=== PATIENT | female | born 1945 | race Caucasian/White ===

== ENCOUNTER 2023-01-15 22:19 | Emergency (ER) | payer BC, SELFPAY ==
[2023-01-15 22:31] VITALS: BP 148/82; PULSE 74; RESP 18; TEMP 36.9; O2SAT 99; BMI 34.0
[2023-01-15 22:35] VITALS: BP 132/82; PULSE 79; O2SAT 90
[2023-01-15 23:01] VITALS: BP 136/73; PULSE 89; O2SAT 91
--- NOTE | 2023-01-15 23:03 | ED.NURSE ---
pt noted low 80s for oximetry, 2L NC applied, increased to 92%. recheck at 2302 and pt 98%, weaned to room air.
--- NOTE | 2023-01-15 23:07 | CRLHL7_ITS ---
For Patients: As a result of the Century Cures Act, medical imaging exams and procedure reports are released immediately into your electronic medical record. You may view this report before your referring provider. If you have questions, please contact your health care provider. INDICATION: Fall, twisting, upper lumbar spine pain after 3 day ago fall down stairs TECHNIQUE: CT lumbar spine without i.v. contrast. Coronal and sagittal reformats were obtained. COMPARISON: 06/12/2011 FINDINGS: Alignment: Unremarkable. Bone: No acute fractures or aggressive bone lesions are identified. 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 There is degenerative secondary articulation between the right L5 transverse process and the sacral ala. Disc: Yais-dw-istheaae degenerative disc disease is seen from L1-2 through L4-5 with Schmorl`s node noted along the superior endplates. The appearance is similar to prior exam. Central canal stenosis is present at L3-4 and L4-5 and can be better assessed by MRI. Soft tissue: The perivertebral soft tissues and visualized retroperitoneum are unremarkable in appearance. IMPRESSION: 1. No acute osseous injuries are identified. Dictated by Ramana Orozco MD @ 01/16/2023 12:00:35 AM Please note that all CT scans at this facility use dose modulation, iterative reconstruction, and/or weight-based dosing when appropriate to reduce radiation dose to as low as reasonably achievable. Dictated by: Ramana Orozco MD @ 01/16/2023 00:00:39 (Electronically Signed)
[2023-01-16] MEDS: HYDROCODONE-ACETAMIN 5-325 MG 1 TAB 2 TAB PO (00:18)
[2023-01-16 01:15] VITALS: BP 143/78; PULSE 62; O2SAT 94
--- NOTE | 2023-01-16 01:15 | CRLHL7_ITS ---
For Patients: As a result of the Century Cures Act, medical imaging exams and procedure reports are released immediately into your electronic medical record. You may view this report before your referring provider. If you have questions, please contact your health care provider. INDICATION: Fall, pain right upper quadrant and right lower rib area, fall 3 days ago TECHNIQUE: CT Abdomen and pelvis without i.v. contrast. Coronal and sagittal reformats were obtained. COMPARISON: None FINDINGS: Lower chest: There is a 7 mm nodule present in the right lateral costophrenic sulcus. Liver: Small portion of the liver dome is excluded and cannot be evaluated. Moderate fatty infiltration of the liver is noted. Spleen: Unremarkable. Pancreas: Unremarkable. Gallbladder: Unremarkable. Kidney: Small intrarenal stones are present bilaterally measuring up to 3 mm. No kidney or ureteral stones or obstruction seen. Adrenal: Unremarkable. Bowel: Unremarkable. The appendix is not identified. Vascular: Unremarkable. Lymph: Unremarkable. Peritoneum: Unremarkable. No pneumoperitoneum is seen. No significant ascites is noted. Pelvis: Unremarkable. Soft tissue: Unremarkable. Bone: Lumbar spinal findings are described in separate report. IMPRESSIONS: 1. No CT correlate for the patient`s symptoms seen. 2. There is a 7 mm nodule present in the right lateral costophrenic sulcus. Imaging surveillance is recommended. Dictated by Ramana Orozco MD @ 01/16/2023 2:18:37 AM Please note that all CT scans at this facility use dose modulation, iterative reconstruction, and/or weight-based dosing when appropriate to reduce radiation dose to as low as reasonably achievable. Dictated by: Ramana Orozco MD @ 01/16/2023 02:18:42 (Electronically Signed)
--- NOTE | 2023-01-16 01:32 | ED.GENADULT ---
HPI - General Adult General Chief complaint: Back Injury/Pain Stated complaint: Back Pain, Fall Time Seen by Provider: 01/15/23 22:26 History of Present Illness HPI narrative: 77-year-old woman presenting to the emergency department via ambulance with complaint of increasing low back pain. Denies radiation into extremities nor any difficulty with urination, no dysuria. No fever. No loss of bowel or bladder control. She did have a fall 3 days ago and has had increasing pain since that time in the low back which apparently is new. Does take gabapentin in the evening for persistent back pain but this is of the mid thoracic region and different than what she is experiencing now. She describes a fall down 3 or 4 stairs and has difficulty describing the mechanism. Apparently did not hit her head and was no loss of consciousness. No extremity injury. No abdominal pain. No chest pain or shortness of breath. Lives independently in the [facility] and prefers to [facility] at this facility. Related Data Home Medications Medication Instructions Recorded Confirmed amitriptyline 50 mg tablet 100 mg PO QPM 01/15/23 01/15/23 gabapentin 300 mg capsule 900 mg PO DAILY 01/15/23 01/15/23 sennosides 8.6 mg tablet (senna) 17.2 mg PO BID 01/15/23 01/15/23 Allergies Allergy/AdvReac Type Severity Reaction Status Date / Time oxycodone Allergy Intermediate Dizzy Verified 01/15/23 22:35 Review of Systems Status of ROS: Reports: 6 or more systems reviewed and unremarkable except as noted in History and below [facility] Social History Smoking Status: Smoker, status unknown Do you use any of these nicotine containing products: None How often do you have a drink containing alcohol: never AUDIT-C Alcohol total score: 0 Non-prescribed substance use: denies use Exam Narrative: Exam Narrative: Pleasant. Wincing in apparent discomfort. Transitions cause pain. Is moving extremities are without difficulty. Able to lift both legs extended independently from the bed. Head is atraumatic. Neck is supple nontender. Lungs are clear. Back is nontender until the mid upper lumbar spine. I do not appreciate deformity here. No SI joint tenderness. No flank pain. Abdomen is soft and nontender initial evaluation. No evidence of trauma on the surface, no bruising. Extremities with trace lower extremity dependent edema. Otherwise well perfused. No pain to palpation about the clavicle or shoulders. Has good range of motion at her shoulders she appears to be nontender. Cranial nerves 2-12 look to be intact. She is breathing easily. Const: Vital Signs, click to edit/add: Vital Signs - 24 hr 01/15/23 22:31 Temperature 98.5 F Pulse Rate [Right Pulse Oximeter] 74 Respiratory Rate 18 Blood Pressure [Ri ght Upper Arm] 148/82 H Pulse Oximetry 99 Oxygen Delivery Me thod Room Air Documenting provider has reviewed patient's vital signs: yes Course Vital Signs Vital signs: Initial Vital Signs Temperature 98.5 F 01/15/23 22:31 Temperature Source Temporal Artery Scan 01/15/23 22:31 Pulse Rate 74 01/15/23 22:31 Respiratory Rate 18 01/15/23 22:31 Blood Pressure 148/82 H 01/15/23 22:31 Blood Pressure Mean 104 01/15/23 22:31 Blood Pressure Position Sitting 01/15/23 22:31 Pulse Oximetry 99 01/15/23 22:31 Oxygen Delivery Method Room Air 01/15/23 22:31 Vital Signs Temperature 98.5 F 01/15/23 22:31 Pulse Rate 74 01/15/23 22:31 Respiratory Rate 18 01/15/23 22:31 Blood Pressure 148/82 H 01/15/23 22:31 Pulse Oximetry 99 01/15/23 22:31 Oxygen Delivery Method Room Air 01/15/23 22:31 Temperature 98.5 F 01/16/23 03:16 Pulse Rate 68 01/16/23 03:16 Respiratory Rate 16 01/16/23 03:16 Blood Pressure 141/74 H 01/16/23 03:16 Pulse Oximetry 95 01/16/23 02:07 Oxygen Delivery Method Room Air 01/15/23 22:31 Medical Decision Making MDM Narrative Medical decision making narrative: Location of pain and in the setting this fall I would suspect compression fracture. Given chronic disease/pain I think CT imaging would be better than plain films. I did review images of CT of lumbar spine Radiology over-read Bone: No acute fractures or aggressive bone lesions are identified. 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 There is degenerative secondary articulation between the right L5 transverse process and the sacral ala. Disc: Mmvk-wv-exrzsirh degenerative disc disease is seen from L1-2 through L4-5 with Schmorl`s node noted along the superior endplates. The appearance is similar to prior exam. Central canal stenosis is present at L3-4 and L4-5 and can be better assessed by MRI. Soft tissue: The perivertebral soft tissues and visualized retroperitoneum are unremarkable in appearance. IMPRESSION: 1. No acute osseous injuries are identified. Due to degree of discomfort that is demonstrated I do trial 2 tablets of [place]. This did seem to help somewhat but then pain returned especially accompanied by discomfort in the right upper abdomen. Re-examination it was not really rib area tenderness. Compression testing was negative in that regard but really seem to be right upper quadrant area pain that she was massaging and in a good deal of discomfort. In the setting of fall can not say that there was not intra-abdominal injury that is now escalating. She is not anticoagulated. Did not place IV however abdomen pelvis CT scan as ordered did show small intrarenal stones in addition to no evidence of bleed. I did review images. Radiology IMPRESSIONS: 1. No CT correlate for the patient`s symptoms seen. 2. There is a 7 mm nodule present in the right lateral costophrenic sulcus. Imaging surveillance is recommended. Did dose her usual gabapentin and seemed overall improved See patient discharge plan Medical Records Medical records reviewed: Yes I reviewed the patient's medical records Discharge Plan Discharge Clinical Impression: Exacerbation of chronic back pain, Low back pain, Nephrolithiasis, Incidental pulmonary nodule Patient Disposition: Home w/ Parent or Adult Condition: Stable Additional Instructions: Continue stretching your low back. I would make a follow-up appointment sometime this next week with your primary care provider if this continues to be causing you difficulty. We also noted a small pulmonary nodule on CT imaging. I would discuss further with your primary care provider when to follow up for re-evaluation/imaging. This may have been visualized in prior imaging and simply remains unchanged. If taking this [place] from [facility], consider taking senna once or twice daily as well. Prednisone from [facility]. Take the prednisone as 60 mg daily for 2 days then 40 mg daily for 4 days then 20 mg daily for 2 days Can continue with your ibuprofen or naproxen. Prescriptions: No Action sennosides [senna] 8.6 mg tablet 17.2 mg PO BID amitriptyline 50 mg tablet 100 mg PO QPM gabapentin 300 mg capsule 900 mg PO DAILY Follow Up/Referrals: Provider,Not a Local [Primary Care Provider] - Stand Alone Forms: [employer] Info Instructions
[2023-01-16] MEDS: GABAPENTIN 300 MG CAPSULE PO (01:36)
[2023-01-16 02:06] VITALS: PULSE 74; O2SAT 92
[2023-01-16 02:07] VITALS: BP 135/92; PULSE 71; O2SAT 95
[2023-01-16 03:16] VITALS: BP 141/74; PULSE 68; RESP 16; TEMP 36.9
--- NOTE | 2023-01-16 03:25 | ED.NURSE ---
patient able to ambulate ind with steady gait, states she feels steady walking and denies any concerns with ADLs
== END 2023-01-16 04:08 | disposition home or self-care (01) ==
PROVIDERS: Emergency Provider Family Medicine
DX: M54.50 Low back pain, unspecified (principal); N20.0 Calculus of kidney
CPT/HCPCS: 72131; 74176; 99284; A9270

== ENCOUNTER 2024-04-12 13:06 | Emergency (ER) | payer BC, SELFPAY ==
[2024-04-12 13:09] VITALS: BP 135/90; PULSE 117; RESP 20; TEMP 36.1; O2SAT 93
--- NOTE | 2024-04-12 13:33 | ED.GENADULT ---
HPI - General Adult General Chief complaint: Weakness Stated complaint: trouble standing Time Seen by Provider: 04/12/24 13:22 History of Present Illness HPI narrative: This 78-year-old female lives alone and comes in because of a report of 2-3 days of generalized malaise and weakness. She states that she was certain that she had a fever but did not measure her temperature. She arrives here with temperature at 97? F. She does not report any cough or shortness of breath. She states that she has pain all over. She does not have any vomiting or diarrhea. She does not report any symptoms of dysuria. She reports weakness but states that with effort she is able to get up and ambulate. Related Data Home Medications ?Medication ?Instructions ?Recorded ?Confirmed amitriptyline 50 mg tablet 100 mg PO QPM 01/15/23 01/15/23 gabapentin 300 mg capsule 900 mg PO DAILY 01/15/23 01/15/23 sennosides 8.6 mg tablet (senna) 17.2 mg PO BID 01/15/23 01/15/23 Allergies Allergy/AdvReac Type Severity Reaction Status Date / Time oxycodone Allergy Intermediate Dizzy Verified 01/15/23 22:35 Review of Systems Status of ROS: Reports: 10 or more systems reviewed and unremarkable except as noted in History and below Narrative: Constitutional: No weight gain or loss. She reports a fever. Eyes: No discharge. No vision changes. HENT: No congestion, no sore throat, no ear pain. Cardiovascular: No chest pain, no palpitations. Respiratory: No shortness of breath, no wheezes, no cough. Gastrointestinal: No abdominal pain, no vomiting, no diarrhea. Genitourinary: No dysuria, no hematuria. Musculoskeletal: Normal range of motion. Skin: No rashes, no pruritis. Neurological: No dizziness, sensory change, speech change. Generalized weakness but able to get up and ambulate. Endo/Heme/Allergies: No bruising or bleeding. No polydipsia. Pysch: no suicidality, no anxiety, no insomnia. All other systems reviewed and are negative. [facility] Social History Smoking Status: Smoker, status unknown Do you use any of these nicotine containing products: None How often do you have a drink containing alcohol: never AUDIT-C Alcohol total score: 0 Non-prescribed substance use: denies use Exam Narrative: Exam Narrative: Constitutional: Well-developed, well-nourished, no acute distress. HEENT: Normocephalic, atraumatic. Neck: Normal range of motion. Nontender. Supple. Heart: Regular. No murmurs. Tachycardia, rate 107? F. Intact distal pulses. Lungs: Clear to auscultation. No chest discomfort. No wheezes, rhonchi, or rales. Abdomen: Normal bowel sounds. Nontender. No rebound tenderness. Genitalia: Deferred. Back: No midline tenderness. Normal range of motion. Extremities: Normal range of motion. No injury. No pedal edema. Skin: Intact. No rash. Warm. No erythema or pallor. Neurologic: No altered sensation. No weakness. Alert and oriented. Psychiatric: No suicidality. No anxiety or depression. No insomnia. Nursing notes and vitals signs are reviewed. Const: Vital Signs, click to edit/add: Vital Signs - 24 hr 04/12/24 13:09 Temperature 97.0 F L Pulse Rate [Right Pulse Oximeter] 117 H Respiratory Rate 20 Blood Pressure [Ri ght Upper Arm] 135/90 H Pulse Oximetry 93 Oxygen Delivery Me thod Room Air Course Vital Signs Vital signs: Initial Vital Signs Temperature 97.0 F L 04/12/24 13:09 Temperature Source Temporal Artery Scan 04/12/24 13:09 Pulse Rate 117 H 04/12/24 13:09 Respiratory Rate 20 04/12/24 13:09 Blood Pressure 135/90 H 04/12/24 13:09 Blood Pressure Mean 105 04/12/24 13:09 Blood Pressure Position Sitting 04/12/24 13:09 Pulse Oximetry 93 04/12/24 13:09 Oxygen Delivery Method Room Air 04/12/24 13:09 Vital Signs Temperature 97.0 F L 04/12/24 13:09 Pulse Rate 117 H 04/12/24 13:09 Respiratory Rate 20 04/12/24 13:09 Blood Pressure 135/90 H 04/12/24 13:09 Pulse Oximetry 93 04/12/24 13:09 Oxygen Delivery Method Room Air 04/12/24 13:09 Temperature 97.0 F L 04/12/24 13:09 Pulse Rate 117 H 04/12/24 13:09 Respiratory Rate 20 04/12/24 13:09 Blood Pressure 135/90 H 04/12/24 13:09 Pulse Oximetry 93 04/12/24 13:09 Oxygen Delivery Method Room Air 04/12/24 13:09 Medications Administered Medications: Discontinued Medications Generic Name Dose Route Start Last Admin Trade Name Nathalie PRN Reason Stop Dose Admin Sodium Chloride 1,000 mls @ 1,000 mls/hr 04/12/24 13:45 04/12/24 15:37 0.9 % Sodium Chloride 1000 Ml IV 04/12/24 14:44 Infused .Q1H SHARLENE Infusion Sodium Chloride 1,000 mls @ 1,000 mls/hr 04/12/24 14:15 04/12/24 16:47 0.9 % Sodium Chloride 1000 Ml IV 04/12/24 15:14 Infused .Q1H SHARLENE Infusion Medical Decision Making MDM Narrative Medical decision making narrative: This patient comes in with generalized malaise and report of weakness and pain all over. She arrives here with normal vital signs except for her heart rate was a bit increased. EKG shows no other findings besides tachycardia. An IV was established where she received 2 L of normal saline intravenously. Her initial lab results returned diffusely elevated. Her hemoglobin, white count, BUN creatinine ratio, and lactate was elevated. She is not showing enough triggers for a sepsis workup but with her report of fever I did check lactate. After receiving a couple L of fluid her lactate returned to 0.9. The patient did not receive any other medications or treatments and states that she is feeling a whole lot better. Chest x-ray is obtained and shows no acute findings however there is a nodule that could use some further evaluation at some time. I did relay this information to the patient and her son. CT imaging of the abdomen and pelvis also returns with no acute findings. She is up ambulating and feels okay to return home. Her son is present and is agreeable also with this plan. Lab Data Labs: Lab Results 04/12/24 04/12/24 04/12/24 Range/Units 13:30 13:32 16:43 WBC 16.47 H (4.50-11.00) K/uL RBC 6.27 H (4.00-5.20) m/uL Hgb 18.7 H (12.0-16.0) gm/dL Hct 55.4 H (33.0-51.0) % MCV 88 (80-100) fL MCH 30 (26-34) pg MCHC 34 (32-36) gm/dL RDW Coeff of Noy 13.3 (11.5-15.5) % Plt Count 206 (140-440) K/uL Neut % (Auto) 81.5 H (42.0-72.0) % Lymph % (Auto) 8.9 L (20-44) % Metcalfe % (Auto) 9.1 (0.0-11.0) % Eos % (Auto) 0.1 (0.0-7.0) % Baso % (Auto) 0.2 (0.0-3.0) % Neut # (Auto) 13.40 H (1.7-7.0) K/uL Lymph # (Auto) 1.50 (0.90-2.90) K/uL Metcalfe # (Auto) 1.50 H (0.00-0.90) K/UL Eos # (Auto) 0.00 (0.00-0.50) K/uL Baso # (Auto) 0.00 (0.00-0.30) K/uL Abs Immat Gran (auto) 0.00 (0.00-0.30) K/uL Imm/Tot Granulo (auto) 0.2 % Sodium 139 (135-149) mmol/L Potassium 4.1 (3.6-5.1) mmol/L Chloride 104 (96-114) mmol/L Carbon Dioxide 19 L (20-32) mmol/L Anion Gap 16 H (7-15) mEq/L BUN 36 H (7-30) mg/dL Creatinine 0.9 (0.5-1.5) mg/dL Estimated GFR 65 ml/min Glucose 117 H (60-115) mg/dL Lactate 2.8 H 0.9 (0.5-1.9) mmol/L Calcium 10.4 (8.4-10.6) mg/dL C-Reactive Protein 4.4 H (0.5-1.0) mg/dL SARS-CoV-2 (PCR) Negative SARS-CoV-2 (Negative) Influenza Type A (PCR) Negative PCR FLU A (Negative) Influenza Type B (PCR) Negative PCR FLU B (Negative) RSV (PCR) Negative PCR RSV (Negative) POC Troponin I 0.01 (0.01-0.04) ng/ml Imaging Data CT scan - abdomen: Radiologist's impression: Moderate stool seen throughout the colon with minimal distal colonic diverticulosis. No evidence of diverticulitis. No obvious acute intra-abdominal abnormality. ECG Data Attestation: I personally reviewed and interpreted this ECG as follows: Interpretation: Sinus tachycardia, rate 107 beats per minute. There are no specific ST or T-wave abnormalities. Discharge Plan Discharge Clinical Impression: Hypovolemia Patient Disposition: Home w/ Parent or Adult Condition: Improved Additional Instructions: Continue current plans. Take plenty of fluids and increase diet as tolerated. Follow up with MD or return if symptoms are recurrent or worsening. Prescriptions: No Action sennosides [senna] 8.6 mg tablet 17.2 mg PO BID amitriptyline 50 mg tablet 100 mg PO QPM gabapentin 300 mg capsule 900 mg PO DAILY Follow Up/Referrals: Provider,Not a Local [Primary Care Provider] - Stand Alone Forms: [employer] Info Instructions
[2024-04-12 13:40] LABS: Lactate* 2.8 mmol/L (0.5-1.9)
--- OUTSIDE RECORDS SUMMARY | 2024-04-12 13:42 | XMS_ITS | Encounter Summary ---
Author Organization [facility] Address [address] [place] [address] Care Team Providers Care Sheriffs Officer Name Role Phone Rosie Trejo MD Primary Care Provider [phone] Rosie Trejo MD Unavailable [phone] Hailee Allen MD Unavailable [phone] Dhaval Maynard Unavailable [phone] No Ref-Primary, Physician Primary Care Provider Joelle Camara MD Unavailable Encounter Details Date Type Department Care Team (Late st Contact Info) Description 06/28/2021 Documentation Only INTERFACED REPORT Unknown, Provider Social History Tobacco Use Types Packs/Day Years Used Date Smoking Tobacco: Never Smokeless Tobacco: Never Alcohol Use Standard Drinks/Week Comments No 0 (1 standard drink = 0.6 oz pur e alcohol) PHQ-2 Answer Date Recorded PHQ-2 Score 2 06/25/2020 Sex and Gender Information Value Date Recorded Sex Assigned at Not on file Gender Identity Not on file Sexual Orientation Not on file COVID-19 Exposure Response Date Recorded In the last month, have you been in contact with someone who was confirmed or suspected to have Coronavirus / COVID-19? No / Unsure 06/28/2021 3:28 AM CDT documented as of this encounter Plan of Treatment Upcoming Encounters Date Type Department Care Team (Late st Contact Info) Description 07/06/2024 9:00 AM CDT Office Visit [facility] [address] [place] [address] Kathy Lyn PA-C [address] [place] [address] Joelle Camara MD [address], [facility] [address] [place], [place] [id number] documented as of this encounter Visit Diagnoses Not on filedocumented in this encounter Additional Health Concerns Infection Onset Date Last Indicated Resolved Time Rule Out COVID-19 07/06/2023 07/06/2023 07/06/2023 9:17 PM CDT Assessment Noted Time PHQ-9 Depression Total Score: 9 06/25/20 20 11:46 AM CDT documented as of this encounter Care Teams Sheriffs Officer Relationship Specialty [place] [id number] [place] [address] PCP - General Internal Medicine 04/28/16 12/18/23 No Ref-Primary, Physician PCP - General 02/23/24 [place] [id number] [place] [address] Assigned PCP 05/02/16 Hailee Allen MD [address] [facility] [address] [place], [place] [id number] Pulmonary Disease 02/11/23 Dhaval Maynard LSW [facility] Primary [facility] - [facility] 07/08/23 Joelle Camara MD [address] [facility] [address] [place], [place] [address] Physician Neurology 02/28/24 documented as of this encounter
--- OUTSIDE RECORDS SUMMARY | 2024-04-12 13:42 | XMS_ITS | Encounter Summary ---
Author Organization [place] Address [address] [place] [address] Care Team Providers Care Spiritual Counselor Name Role Phone Rosie Trejo MD Primary Care Provider [phone] Rosie Trejo MD Unavailable [phone] Hailee Allen MD Unavailable [phone] Dhaval Maynard Unavailable [phone] Ref-Primary, Physician Primary Care Provider Joelle Camara MD Unavailable Reason for Visit * Reason Comments Medication Refill Encounter Details Date Type Department Care Team (Late st Contact Info) Description 01/23/2023 Refill [facility] [address] [place] [address] [place] [address] [place] [address] Medication Refill Social History Tobacco Use Types Packs/Day Years Used Date Smoking Tobacco: Never Smokeless Tobacco: Never Alcohol Use Standard Drinks/Week Comments No 0 (1 standard drink = 0.6 oz pur e alcohol) PHQ-2 Answer Date Recorded PHQ-2 Score 0 09/21/2022 Sex and Gender Information Value Date Recorded Sex Assigned at Not on file Gender Identity Not on file Sexual Orientation Not on file COVID-19 Exposure Response Date Recorded In the last 10 days, have yo u been in contact with someone who was confirmed or suspected to have Coronavirus/COVID-19? No / Unsure 01/25/2023 2:40 PM CDT documented as of this encounter Miscellaneous Notes * Telephone Encounter - Rosie Trejo MD - 01/25/2023 8:50 AM CDT Will follow upat 03/22/2023 appt documented in this encounter Plan of Treatment Upcoming Encounters Date Type Department Care Team (Late st Contact Info) Description 07/06/2024 9:00 AM CDT Office Visit [facility] [address] [place] [phone] Kathy Lyn PA-C [address] [place] [address] Joelle Camara MD [address] [place] [address] documented as of this encounter Visit Diagnoses Diagnosis Slow transit constipation documented in this encounter Additional Health Concerns Infection Onset Date Last Indicated Resolved Time Rule Out COVID-19 07/06/2023 07/06/2023 07/06/2023 9:17 PM CDT Assessment Noted Time PHQ-9 Depression Total Score: 0 09/21/20 22 9:30 AM WOOD TECHNOLOGIST documented as of this encounter Care Teams Spiritual Counselor Relationship Specialty [place] [address] [place] [address] PCP - General Internal Medicine 04/28/16 12/18/23 No Ref-Primary, Physician PCP - General 02/23/24 [place] [address] [place] [address] Assigned PCP 05/02/16 Hailee Allen MD [address] [facility] [address] [place] [address] Pulmonary Disease 02/11/23 Dhaval Maynard LSW Clinic Checkout Operator Primary Care - CC 07/08/23 Joelle Camara MD [address], [facility] [address] [place] [address] Physician Neurology 02/28/24 documented as of this encounter
--- OUTSIDE RECORDS SUMMARY | 2024-04-12 13:42 | XMS_ITS | Encounter Summary ---
Author Organization [place] Address [address] [facility] [place] [address] Care Team Providers Care Fortune Teller Name Role Phone Rosie Trejo MD Primary Care Provider [phone] Rosie Trejo MD Unavailable [phone] Hailee Allen MD Unavailable [phone] Dhaval Maynard Unavailable [phone] Ref-Primary, Physician Primary Care Provider Joelle Camara MD Unavailable Encounter Details Date Type Department Care Team (Late st Contact Info) Description 12/23/2020 Documentation Only INTERFACED REPORT Unknown, Provider Social [...] on file Sexual Orientation Not on file documented as of this encounter Plan of Treatment Upcoming Encounters Date Type Department Care Team (Late st Contact Info) Description 07/06/2024 9:00 AM CDT Office Visit [facility] [address] [facility] [address] [place] [phone] Kathy Lyn PA-C [address] [place] [address] Joelle Camara MD [address] [facility] [address] [place] [address] documented as of this encounter Visit Diagnoses Not on filedocumented in this encounter Additional Health Concerns Infection Onset Date Last Indicated Resolved Time Rule Out COVID-19 07/06/2023 07/06/2023 07/06/2023 9:17 PM CDT Assessment Noted Time PHQ-9 Depression Total Score: 9 06/25/20 11:46 AM CDT documented as of this encounter Care Teams Fortune Teller Relationship Specialty [place] [address] [place] [address] PCP - General Internal Medicine 04/28/16 12/18/23 No Ref-Primary, Physician PCP - General 02/23/24 [place] [address] [place] [address] Assigned PCP 05/02/16 Hailee Allen MD [address] [place] [address] [address] [place] [address] Pulmonary Disease 02/11/23 Dhaval Maynard LSW Clinic Senior Java Programmer Analyst Primary Care - CC 07/08/23 Joelle Camara MD [address] [facility] [address] [place] [address] Physician Neurology 02/28/24 documented as of this encounter
--- OUTSIDE RECORDS SUMMARY | 2024-04-12 13:42 | XMS_ITS | Encounter Summary ---
Author Organization [place] Address [address] [facility] [place] [address] Care Team Providers Care Drier Attendant Name Role Phone Rosie Trejo MD Unavailable [phone] Hailee Allen MD Unavailable [phone] No Ref-Primary, Physician Primary Care Provider Reason for Referral * Consultation (Routine: Next available opening) - Pending Review Specialty Diagnoses / Procedures Referred By Lokesh diane Referred To Contact Diagnoses Memory difficulties Kathy Lyn PA-C [address] [place] [address] Referral ID Status Reason Start Date Expiration Date V isits Requested Visits Authorized [id number] Pending Review 02/23/2024 02/22/2025 1 1 Question Answer Reason for Referral: Memory Care Scheduling Instructions: [facility] will call you to coordinate your care as prescribed by your provider. If you don't hear from a patient intake representative within 2 business days, please call . Comments Please be aware that coverage of these services is subject to the terms and limitations of your health insurance plan. Call member services at your health plan with any benefit or coverage questions. [facility] will call you to coordinate your care as prescribed by your provider. If you don't hear from a patient intake representative within 2 business days, please call . Reason for Visit * Reason Comments Memory Loss Check Up Encounter Details Date Type Department Care Team (Late st Contact Info) Description 02/23/2024 8:00 AM CDT Office Visit [facility] [address] [place] [address] Kathy Lyn PA-C [address] [place] [address] Memory difficulties (Primary Dx) Social History Tobacco Use Types Packs/Day Years Used Date Smoking Tobacco: Never Smokeless Tobacco: Never Alcohol Use Standard Drinks/Week Comments No 0 (1 standard drink = 0.6 oz pur e alcohol) PHQ-2 Answer Date Recorded PHQ-2 Score 0 02/23/2024 Adolescent Education Answer Date Record ed Getting School Help Needed Not on file 07/04 Food Insecurity Answer Date Recorded Within the past 12 months, d id you worry that your food would run out before you got money to buy more? No 07/26/2023 Within the past 12 months, d id the food you bought just not last and you didn? t have money to get more? No 07/26/2023 Housing Stability Answer Date Recorded Do you have housing? (Celi green is defined as stable permanent housing and does not include staying ouside in a car, in a tent, in an abandoned building, in an overnight senior care, or couch-surfing.) Yes 07/26/2023 Are you worried about losing your housing? No 07/26/2023 Financial Resource Strain Answer Date R ecorded Within the past 12 months, h ave you or your family members you live with been unable to get utilities (heat, electricity) when it was really needed? No 07/26/2023 Transportation Needs Answer Date Record ed Within the past 12 months, h as lack of transportation kept you from medical appointments, getting your medicines, non-medical meetings or appointments, work, or from getting things that you need? No 07/26/2023 Interpersonal Safety Answer Date Record ed Do you feel physically and e motionally safe where you currently live? Yes 02/23/2024 Within the past 12 months, h ave you been hit, slapped, kicked or otherwise physically hurt by someone? No 02/23/2024 Within the past 12 months, h ave you been humiliated or emotionally abused in other ways by your partner or ex-partner? No 02/23/2024 Sex and Gender Information Value Date Recorded Sex Assigned at Not on file Gender Identity Not on file Sexual Orientation Not on file documented as of this encounter Last Filed Vital Signs Vital Sign Reading Time Taken Comments Blood Pressure 131/80 02/23/2024 7:44 AM CDT Pulse 86 02/23/2024 7:44 AM CDT Temperature 36.3 ??C (97.4 ??F) 02/23/2024 7:44 AM CD T Respiratory Rate 16 02/23/2024 7:44 AM CDT Oxygen Saturation 94% 02/23/2024 7:44 AM CDT Inhaled Oxygen Concentration - - Weight 71.2 kg (157 lb) 02/23/2024 7:44 AM CDT Height 158.1 cm (5' 2.25) 02/23/2024 7:44 AM CD T Body Mass Index 28.49 02/23/2024 7:44 AM CDT documented in this encounter Progress Notes * Jorge-Kathy Multani PA-C - 02/23/2024 8:00 AM CDT Assessment & Plan Memory difficulties Well refer to neuro for memory concerns. - Adult Neurology Retail Coordinator Referral; Future Subjective Liat is a 78 year old, presenting for the following health issues: Memory Loss (Check Up) Liat is he due to concerns her daughter has with her memory. She had a physical and passed the memory test missing 1 word in October 2023. She is an avid reader and takes care of her own checkbook with no issues. 02/23/2024 7:43 AM Additional Questions Roomed by TOBY Cabezas Accompanied by Self History of Present Illness Reason for visit: Daughter asked me do because memory isnt as good as should be Review of Systems Constitutional, neuro, ENT, endocrine, pulmonary, cardiac, gastrointestinal, genitourinary, musculoskeletal, integument and psychiatric systems are negative, except as otherwise noted. Objective BP 131/80 (BP Location: Right arm, Patient Position: Sitting, Cuff Size: Adult Large) Pulse 86 Temp 97.4 ??F (36.3 ??C) (Oral) Resp 16 Ht 1.581 m (5' 2.25) Wt 71.2 kg (157 lb) LMP (LMP Unknown) SpO2 94% No BMI 28.49 kg/m?? Body mass index is 28.49 kg/m??. Physical Exam GENERAL: alert and no distress EYES: Eyes grossly normal to inspection, PERRL and conjunctivae and sclerae normal HENT: ear canals and TM's normal, nose and mouth without ulcers or lesions RESP: lungs clear to auscultation - no rales, rhonchi or wheezes CV: regular rate and rhythm, normal S1 S2, no S3 or S4, no murmur, click or rub, no peripheral edema NEURO: Normal strength and tone, sensory exam grossly normal, mentation intact, and cranial nerves 2-12 intact PSYCH: mentation appears normal, affect normal/bright Signed Electronically by: Kathy Lyn PA-C Answers submitted by the patient for this visit: Patient Health Questionnaire (Submitted on 02/23/2024) If you checked off any problems, how difficult have these problems made it for you to do your work,take care of things at home, or get along with other people?: Not difficult at all PHQ9 TOTAL SCORE: 0 General Questionnaire (Submitted on 02/23/2024) Chief Complaint: Chronic problems general questions HPI Form What is the reason for your visit today? : daughter asked me do because memory isnt as good as should be documented in this encounter Plan of Treatment Upcoming Encounters Date Type Department Care Team (Late st Contact Info) Description 07/06/2024 9:00 AM CDT Office Visit [facility] [address] [address] [facility] [address] [place] [phone] Kathy Lyn PA-C [address] [place] [address] Joelle Camara MD [address] [place], [place] [address] Scheduled Referrals Name Type Priority Associated Diagnoses Orde r Schedule Adult Neurology Retail Coordinator Referral Referral Routine: Next available opening Memory difficulties Expected: 02/23/2024 (Approximate), Expires: 02/22/2025 documented as of this encounter Visit Diagnoses Diagnosis Memory difficulties- Primary Memory loss documented in this encounter Additional Health Concerns Assessment Noted Time PHQ-9 Depression Total Score: 0 02/23/20 7:32 AM CDT documented as of this encounter Care Teams Drier Attendant Relationship Specialty Start Date End Date No Ref-Primary, Physician PCP - General 02/23/24 [place] [address] [place] [address] Assigned PCP 05/02/16 Hailee Allen MD [address] [facility] [address] [place], [place] [address] Pulmonary Disease 02/11/23 documented as of this encounter
--- OUTSIDE RECORDS SUMMARY | 2024-04-12 13:42 | XMS_ITS | Encounter Summary ---
Author Organization [facility] Address [address] [facility] [place] [address] Care Team Providers Care Testing Analyst Name Role Phone Rosie Trejo MD Unavailable [phone] Hailee Allen MD Unavailable [phone] No Ref-Primary, Physician Primary Care Provider Encounter Details Date Type Department Care Team (Latest Contact Info) Description 02/23/2024 Travel Social History Tobacco Use Types Packs/Day Years [...] Date Recorded Do you have housing? (Celi g is defined as stable permanent housing and does not include staying ouside in a car, in a tent, in an abandoned building, in an overnight skilled nursing, or couch-surfing.) Yes 07/26/2023 Are you worried [...] Office Visit [facility] [address] [facility] [address] [place] [phone] Kathy Lyn PA-C [address] [place] [address] Joelle Camara MD [address] [facility] [address] [place] [address] documented as of this encounter Visit Diagnoses Not on filedocumented in this encounter Additional Health Concerns Assessment Noted Time PHQ-9 Depression Total Score: 0 02/23/20 7:32 AM CDT documented as of this encounter Care Teams Testing Analyst Relationship Specialty Start Date End Date No Ref-Primary, Physician PCP - General 02/23/24 [place] [address] [place] [address] Assigned PCP 05/02/16 Hailee Allen MD [address] [place] [address] Pulmonary Disease 02/11/23 documented as of this encounter
--- OUTSIDE RECORDS SUMMARY | 2024-04-12 13:42 | XMS_ITS | Encounter Summary ---
Author Organization [facility] Address [address] [facility] [place] [address] Care Team Providers Care Webfed Offset Press Operator Name Role Phone Rosie Trejo MD Unavailable [phone] Hailee Allen MD Unavailable [phone] No Ref-Primary, Physician Primary Care Provider Joelle Camara MD Unavailable Reason for Visit * Reason Comments Medication Refill Encounter Details Date Type Department Care Team (Late st Contact Info) Description 03/24/2024 Refill [facility] [address] [place] [address] [place] [address] [place] [address] Medication Refill Social History Tobacco [...] in an abandoned building, in an overnight fci, or couch-surfing.) Yes 07/26/2023 Are you worried [...] CDT Office Visit [facility] [address] [place] [phone] Kathy Lyn PA-C [address] [place] [address] Joelle Camara MD [address] [facility] [address] [place] [address] documented as of this encounter Visit Diagnoses Diagnosis Slow transit constipation documented in this encounter Additional Health Concerns Assessment Noted Time PHQ-9 Depression Total Score: 0 02/23/20 24 7:32 AM CDT documented as of this encounter Care Teams Webfed Offset Press Operator Relationship Specialty Start Date End Date No Ref-Primary, Physician PCP - General 02/23/24 [place] [address] [place] [address] Assigned PCP 05/02/16 Hailee Allen MD [address] [facility] [address] [place] [address] Pulmonary Disease 02/11/23 Joelle Camara MD [address], [address] [address] Physician Neurology 02/28/24 documented as of this encounter
--- OUTSIDE RECORDS SUMMARY | 2024-04-12 13:42 | XMS_ITS | Encounter Summary ---
Author Organization [place] Address [address] [facility] [place] [address] Care Team Providers Care Vocational Childcare Teacher Name Role Phone Rosie Trejo MD Unavailable [phone] Hailee Allen MD Unavailable [phone] No Ref-Primary, Physician Primary Care Provider Joelle Camara MD Unavailable Reason for Visit * Reason Comments Medication Refill Encounter Details Date Type Department Care Team (Late st Contact Info) Description 03/05/2024 Refill [facility] [address] [place] [address] [place] [address] [place] [address] Medication Refill Social History Tobacco [...] in an abandoned building, in an overnight [facility], or couch-surfing.) Yes 07/26/2023 Are you worried [...] Visit [facility] [address] [place] [phone] Kathy Lyn PA-C [address] [place] [address] Joelle Camara MD [address] [facility] [place] [address] documented as of this encounter Visit Diagnoses Diagnosis Sleep disorder Sleep disturbance, unspecified Spinal stenosis of lumbar region with neurogenic claudication Spinal stenosis, lumbar region, with neurogenic claudication documented in this encounter Additional Health Concerns Assessment Noted Time PHQ-9 Depression Total Score: 0 02/23/20 24 7:32 AM CDT documented as of this encounter Care Teams Vocational Childcare Teacher Relationship Specialty Start Date End Date No Ref-Primary, Physician PCP - General 02/23/24 [place] [address] [place] [address] Assigned PCP 05/02/16 Hailee Allen MD [address] [facility] 276 [place] [address] Pulmonary Disease 02/11/23 Joelle Camara MD [address], [address] [address] Physician Neurology 02/28/24 documented as of this encounter
--- OUTSIDE RECORDS SUMMARY | 2024-04-12 13:42 | XMS_ITS | Clinical Summary ---
Author Organization [facility] Address [place], [place] [address] Care Team Providers Care Bee Producer Name Role Phone Anneliese Son MD Unavailable [phone] Rosie Trejo Primary Care Provider + [phone] Allergies Active Allergy Reactions Criticality Noted Date Comments Baclofen Headache 01/14/2012 Oxycodone-Acetaminophen Respiratory Depression 03/23/2011 Low O2 Sats Medications Medication Sig Dispensed Refills Start Date End Date Status artificial tears, peg 400-propylene glycol, (SYSTANE) 0.4-0.3 % drop ophthalmic Place 1 Drop into both eyes every 2 hours if needed for Dry Eyes. Active calcium carbonate-vitamin D3, 600 mg-400 unit, (CALCIUM 600 + D) 600 mg(1,500mg) -400 unit tabletIndications:B ulging disc Take 1 tablet by mouth 2 times daily with meals. 180 tablet 1 06/17/2015 Active medication order composerIndications :Chronic back pain Ice vest, use as directed for ice pack. Diagnosis chronic back pain 3 unit 1 10/13/2015 Active amitriptyline (ELAVIL) 100 mg tabletIndications:S richard stenosis, lumbar region, without neurogenic claudication Take 1 tablet by mouth at bedtime. 90 tablet 1 03/11/2016 Active SENNA LAX 8.6 mg tabletIndications:C onstipation, unspecified constipation type TAKE 2 TABLETS BY MOUTH TWO TIMES A DAY 360 tablet 2 04/03/2016 Active gabapentin (NEURONTIN) 300 mg capsule 3 capsules at bedtime. 01/20/2017 Active triamcinolone 0.025% (ARISTOCORT) 0.025 % ointment Apply a thin layer to the affected area(s) by topical route 2 times per day 15 g 1 07/31/2019 Active predniSONE (DELTASONE) 20 mg tablet Take 2 tablets (40 mg) by oral route in the morning with food for 3 days 6 tablet 07/31/2019 Active CPAPIndications:Mil d obstructive sleep apnea,Sleep related hypoxia New replacement CPAP machine for home use at pressure: 7-14 cmw + 3 lpm supplemental O2 inline , Heated humidifier x 1 q 5yr, water chamber x 1 q 6 mo, chin strap x 1 q 6 mo, Full Face Mask x 1 q 3mo, Full face cushion x 1 q mo, Heated PAP tubing x 1 q 3 mo, Headgear x 1 q 6 mo, non-disposable filters x 1 q 6 mo, disposable filter x 2 q mo; Length of Need: 99 months; Frequency of use: Daily 1 Each 11/04/2021 Active oxygen-air delivery systems (HOME OXYGEN)Indications: Chronic respiratory failure with hypoxia (HC),Nocturnal hypoxemia For home use. Liters per minute: 3. Frequency: with all sleep in line w/ CPAP Duration of use:99 Dx: sleep hypoxia 1 Each 11/04/2021 Active Active Problems Problem Noted Date Diagnosed Date Mild obstructive sleep apnea 11/06/2018 Overview: POLYSOMNOGRAM PSG type: full night baseline Date of study:08/18/2015; weight: 177# Facility: [facility] Baseline data: Total Sleep Time: 452.5 Sleep Efficiency: 93.6% AHI: 9.5 RDI: 11.8 See O2%: 82 MD interp:KESHIA Baseline ESS: n/a OVERNIGHT OXIMETRY Date: 11/18/2015 Parameters: RA + CPAP Time w/ O2 sat <89: 01:49:00 OVERNIGHT OXIMETRY Date: 12/04/2015 Parameters: 2LPM oxygen + CPAP Time w/ O2 sat <89: 0:31:56 OVERNIGHT OXIMETRY Date: 10/31/2018 Parameters: 3lpm supplemental O2 inline w/ CPAP Time <88: 0:03:56 Interp: normal Recommendation: stay on CPAP and 3lpm suppl O2 inline Sleep related hypoxia 11/06/2018 Overview: See KESHIA above OVERNIGHT OXIMETRY Date: 10/31/2018 Parameters: 3lpm supplemental O2 inline w/ CPAP Time <88: 0:03:56 Interp: normal Recommendation: stay on CPAP and 3lpm suppl O2 inline Left ventricular diastolic dysfunction, NYHA cla ss 1 09/25/2015 Elevated blood pressure 09/25/2015 Ureterolithiasis 05/07/2015 Left lower quadrant pain 05/07/2015 ACP (advance care planning) 05/07/2015 Overview: Patient has identified Health Care Agent(s): Yes Add Health Care Agents: Yes Health Care Agent(s): Primary Health Care Agent: Greer Relationship: daughter Secondary Health Care Agent: Relationship: Phone: Conservator: Relationship: Phone: Guardian: Relationship: Phone: Patient has Advance Care Plan Documents (Health Care Directive, POLST): Yes Advance Care Plan Documents: Health Care Directive Patient has identified Specific Treatment Preferences: Yes Specific Treatment Preferences: a.) Code Status: CPR/Attempt Resuscitation Incidental lung nodule, > 3mm and < 8mm 10/29/19 14 Overview: 09/2013 fu test stable at 4 mm. No further eval indicated Examination of participant in clinical trial Overview: RESCUE Study Letha Valle RN [phone] After-cataract, obscuring vision 04/25/2012 OA (osteoarthritis) of knee 04/10/2012 Stuttering 09/20/2011 Pain medication agreement 09/07/2011 Overview: Controlled substance agreement for dilaudid twice daily as needed on file and signed 09/07/11. Designated pharmacy: [facility] Prescribing physician: Antonio Diagnosis: chronic back pain. Continue gabapentin and amitriptyline Conversion disorder 08/15/2011 Nephrolithiasis 06/21/2011 Sebaceous cyst 06/21/2011 Status post total knee replacement. 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 Back pain 01/16/2009 Overview: August 2011: repeat thoracic MRI shows worsening of DDD and facet arthritis, especially at T10-11 TIA (transient ischemic attack) 07/08/2008 Overview: Dx seem questionable Had bilateral leg numbness and tingling MRI/MRA negative Symptoms have recurred multiple times since then Diverticulitis of colon (without mention of hemo rrhage) 03/15/2008 Unspecified constipation 02/28/2008 Overview: from narcotics PANCREATITIS 02/25/2008 Overview: Admitted 02/2006 Other abnormal glucose 11/15/2007 Overview: Pre diabetic, sugars controlled Pyogenic granuloma of skin and subcutaneous tiss ue 10/05/2007 Sleep disturbance, unspecified 08/25/2006 Overview: Sleep Disorder Obesity, unspecified 08/25/2006 Other and unspecified hyperlipidemia 08/25/2006 Posttraumatic stress disorder 04/13/2006 Overview: Med trials include clonodine,neurontin, sonata, risperdal, melatonin, abilify, seroquel. Topamax was helpful but led to cognitive issues. Zyprexa was helpful but increased appetite. She has tried depakote, tegretol and lithium. she took mellaril up to 200mg daily. 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 SHE DOES NOT HAVE DIAPHORESIS. IT IS NOT RELATED TO ACTIVITY. IT DOES NOT RADIATE DOWN HER ARMS, BUT IT DOES FEEL LIKE IS A LOT OF PRESSURE IN HER CHEST. SHE DOES NOT REPORT ANY FEVERS, COUGH, OR BREATHING DIFFICULTY. EKG SHOWED POSSIBLE INFERIOR INFARCT AGE UNDERTERMINED. Other seborrheic keratosis 06/13/2002 Overview: ABOUT 1.5 cm IN DIAMETER ON HER ABDOMEN. SHE ALSO HAS MULTIPLE OTHER ONES ON HER BACK AND A COUPLE FAIRLY ROUGH ONES ON THE INNER ASPECT OF HER RIGHT THIGH. Spinal stenosis, lumbar gwendolyn on, without neurogenic claudication Overview: L4-5, moderate Resolved Problems Problem Noted Date Diagnosed Date Resolved Date Examination of participant in clinical trial 3 01/26/2013 Overview: RESCUE study Letha Valle, RN [phone] S/P knee replacement 04/09/2011 011 Overview: Total knee replacement 03/2011 TIA (transient ischemic attack) 07/19/2008 10/21/2008 Dizziness 07/09/2008 01/16/2009 Muscle weakness of lower extremity 07/09/2008 01/16/2009 Overview: Left leg Disturbance of skin sensation 03/15/2008 01/16/2009 Other malaise and fatigue 03/15/2008 Other specified retention of urine 02/28/2008 01/16/2009 Overview: From narcotic use during pancreatitis Encounter for long-term (cur rent) use of other medications 06/16/2007 10/21/2008 Depressive disorder, not elsewhere classified 08/25/20 06 10/21/2008 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 She had a brief trial on remeron. She was on paxil for an extended period of time and has been on zoloft. She tried nardil, depakote and took doxepin at a dose of 350mg . She has tried lithium at 600mg at bedtime and took effexor at 150mg daily. Hypercholesteremia 9 Overview: improved Immunizations Name Administration Dates Next Due Influenza, High-dose Inactivated 06/17/2015 Influenza, IIV3 (Age >=3 years) 10/29/19 14,07/28/2012,06/22/2011,2009,07/08/2009,07/10/2008,08/19/2007,1 10/22/2005 Pneumococcal Poly,23-Valent (Pneumovax) 04/10/2012,07/10/2008 Pneumococcal conj 13-Valent (Prevnar 13) 02/03/2016 Td (Age >=7 Years) 04/18/2004 Tdap 07/28/2012 Zoster (Zostavax-ZVL, live) 04/10/2012 Family History Medical History Relation Name Comments Good Health Brother 6 Good Health Brother 7 Good Health Brother 8 Diabetes Mother age 87, go t DM in old age Good Health Sister 5 Good Health Sister 6 Good Health Sister 7 Cancer-breast No Family History Relation Name Status Comments Brother 1 Alive HTN, Lipids Brother 2 Alive HTN Brother 3 Alive HTN Brother 4 pneumonia Brother 5 pneumonia Brother 6 Brother 7 Brother 8 Daughter Gi Alive 1966 Father (Age 91) COPD, ppd Maternal Grandfather lightni ng, hit by tree Maternal Grandmother (Age 62) [place] Mother (Age 84) CHF, Diabe jeyson Paternal Grandfather lightni ng Paternal Grandmother (Age 80's) heart Sister 1 Alive HTN, Sister 2 Alive HTN Sister 3 Alive HTN Sister 4 marisa heart Sister 5 Sister 6 Sister 7 Son 1 Lazaro Alive 1967 Son 2 Juan Alive 1968 Son 3 Perez Alive 1971 Social History Tobacco Use Types Packs/Day Years Used Date Smoking Tobacco: Never Smokeless Tobacco: Never Alcohol Use Standard Drinks/Week Comments No 0 (1 standard drink = 0.6 oz pur e alcohol) zero. Social Connections Answer Date Recorded Frequency of Communication with Friends and Fami ly Not on file 10/05/2021 Financial Resource Strain Answer Date R ecorded Difficulty of Paying Living Expenses Not on file 10/05/2021 Difficulty of Paying Living Expenses Not on file 10/05/2021 Sex and Gender Information Value Date Recorded Sex Assigned at Not on file Gender Identity Not on file Sexual Orientation Not on file Obstetrics History Para Term AB IAB SAB Ectopic Multiple Livin g Live Births 4 4 4 0 0 0 0 0 4 Date Outcome GA Total Labor Labor/2nd/3rd Weight Sex Type Anes PTL Krysta A1 A5 Name Clin Term Term Term Term Last Filed Vital Signs Vital Sign Reading Time Taken Comments Blood Pressure 124/64 11/04/2021 9:32 AM BIOLOGY LABORATORY ASSISTANT Pulse 99 11/04/2021 9:32 AM BIOLOGY LABORATORY ASSISTANT Temperature 36.3 ??C (97.3 ??F) 02/20/2016 1 2:16 PM CDT Respiratory Rate 16 10/19/2018 8:23 AM BIOLOGY LABORATORY ASSISTANT Oxygen Saturation 95% 11/04/2021 9:3 2 AM BIOLOGY LABORATORY ASSISTANT room air, at rest Inhaled Oxygen Concentration - - Weight 78.9 kg (174 lb) 11/04/2021 9:32 AM BIOLOGY LABORATORY ASSISTANT Height 154.9 cm (5' 1) 11/04/2021 9:32 AM BIOLOGY LABORATORY ASSISTANT Body Mass Index 32.88 11/04/2021 9:32 AM BIOLOGY LABORATORY ASSISTANT Plan of Treatment Health Maintenance Due Date Last Done Comments Hepatitis C screening for ag e 18-79 1963 Zoster (shingles) series for age 50+ (2 of 3) 06/05/2012 04/10/2012 Depression screening for age 12+ 02/24/2017 02/25/20 16, 02/03/2016 Tetanus booster 07/28/2022 07/28/2012, 04/18/2004 BMI (ht and wt on same day) for age 18+ 11/04/2022 11/04/2021, 10/23/2019, 10/19/2018, Additional history exists COVID-19 vaccine series (2022- season) 2023 09/21/2022, 09/15/2021, 12/16/2020, Additional history exists Influenza for age 65+ 06/10/2024 06/17/2015 , 10/29/2013, 07/28/2012, Additional history exists DEXA/DXA scan for age 65+ Completed 04/25/2012 Tdap Completed 07/28/2012 Fecal testing non-DNA (FIT,FOBT,iFOBT) for age 45-75 Discontinued 06/29/2015, 11/06/2013 Pneumococcal series for age 65+ Completed 02/03/2016, 04/10/2012, 07/10/2008 Medical Devices Implanted Type Area Head Banquet Waiter/Waitress Device Identifier Shelf Expiration Date Model / Serial / Lot Stent [id number] [id number] [facility] [id number] Implanted:Qty: 1 on 05/09/2015 by Juan Castillo MD at [facility] Left: [facility] 01/26/2018 [id number] / / [id number] Procedures Procedure Name Priority Date/Time Associated Diagnosis Comments OCCULT BLOOD IFOBT STOOL Routine 06/29/2015 12:19 PM CDT Screen for colon cancer XR DXA BONE DENSITY 2 SITES AXIAL Routine 04/25/2012 12:37 PM CDT Postmenopausal bone loss from Last 3 Months or Most Recently Relevant to Health Maintenance Results * OCCULT BLOOD IFOBT STOOL (06/29/2015 12:19 PM CDT) STOOL BLOOD ,IFOBT Negative Negative, Invalid 07/07/2015 12:32 PM CDT [facility] Stool specimen (specimen) STOOL SPECIMEN / Unknown Non-Blood / Unknown 06/29/2015 12:19 PM CDT 07/07/2015 12:19 PM CDT Ary Alvarez MD LABORATORY [facility] [address] [place] [address], * XR DEXA BONE DENSITY 2 SITES (04/25/2012 12:37 PM CDT) Anatomical Region Laterality Modality Spine, HIPS, HIPL, HIPR Other Narrative 04/28/2012 1:42 PM CDT Please see scanned document for results of this study. Procedure Note Krystle Ellis PA - 04/28/2012 Please see scanned document for results of this study. Ary Alvarez MD DEXA from Last 3 Months or Most Recently Relevant to Health Maintenance Advance Directives Documents on File Type Date Recorded Patient Yarder Expl anation Treatment Guidelines 04/04/2014 8:33 AM RE SUSCITATION GUIDELINES - FARM - 04/02/2014 Healthcare Directive 02/10/2009 Health Care Directive/Agent - [facility] [facility] -11/04/08 * Full Code (Latest Code Status on File) Date Activated Date Inactivated Comments 05/09/2015 7:27 AM 05/10/2015 8:36 PM * Full Code Date Activated Date Inactivated Comments 05/07/2015 9:58 PM 05/09/2015 7:27 AM Question Answer Comments Code Status Discussion: Discussed * Full Code Date Activated Date Inactivated Comments 05/01/2012 7:21 AM 05/02/2012 2:10 AM * Full Code Date Activated Date Inactivated Comments 08/15/2011 4:28 AM 08/15/2011 9:06 PM * Full Code Date Activated Date Inactivated Comments 01/17/2009 1:04 AM 01/18/2009 4:22 PM Care Teams Bee Producer Relationship Specialty Start Date End Date TrejoRosie thompsonn [address] [address] PCP - General Internal Medicine 10/22/16 Anneliese Son MD [address] [place] [address] Consulting Physician Cardiovascular Disease 10/21/15
--- OUTSIDE RECORDS SUMMARY | 2024-04-12 13:42 | XMS_ITS | Encounter Summary ---
Author Organization [facility] Address [address] [facility] [place] [address] Care Team Providers Care Claims Agent Right Of Way Name Role Phone Rosie Trejo MD Unavailable [phone] Hailee Allen MD Unavailable [phone] Reason for Visit * Reason Onset Date Comments Memory Loss 01/25/2024 Forgetfulness x 1 month Encounter Details Date Type Department Care Team (Late st Contact Info) Description 01/25/2024 Telephone [facility] [address] [place] [address] [place] [address] [place] [address] Memory Loss (Forgetfulness x 1 month) Social History Tobacco Use Types Packs/Day Years Used Date Smoking Tobacco: Never Smokeless Tobacco: Never Alcohol Use Standard Drinks/Week Comments No 0 (1 standard drink = 0.6 oz pur e alcohol) PHQ-2 Answer Date Recorded PHQ-2 Score 0 03/22/2023 Adolescent Education Answer Date Record ed Getting [...] in an abandoned building, in an overnight retirement, or couch-surfing.) Yes 07/26/2023 Are you worried [...] motionally safe where you currently live? Yes 07/26/2023 Within the past 12 months, h ave you been hit, slapped, kicked or otherwise physically hurt by someone? No 07/26/2023 Within the past 12 months, h ave you been humiliated or emotionally abused in other ways by your partner or ex-partner? No 07/26/2023 Sex and Gender Information Value Date Recorded Sex Assigned at Not on file Gender Identity Not on file Sexual Orientation Not on file documented as of this encounter Miscellaneous Notes * Telephone Encounter - Renee Saenz RN - 01/25/2024 10:13 AM CDT Patient c/o forgetting things and memory issues x 1 month. Patient states daughter has mentioned patient not acting or doing what she normally does past several days. Usually keeps things neat is not keeping up with housekeeping. Patient unable to give more specific examples. Patient answered questions appropriately. Denies any other concerning symptoms. Feels fine otherwise. Patient requesting appointment on 01/26 as daughter can take to clinic that day. Advised if patient has any symptoms of concern or daughter is noticing more with behavior to call clinic to speak with a nurse. Renee Saenz RN documented in this encounter Plan of Treatment Upcoming Encounters Date Type Department Care Team (Late st Contact Info) Description 07/06/2024 9:00 AM CDT Office Visit [facility] [address] [place] [address] Kathy Lyn PA-C [address] [place] [address] Joelle Camara MD [address] [place] [address] documented as of this encounter Visit Diagnoses Not on filedocumented in this encounter Additional Health Concerns Assessment Noted Time PHQ-9 Depression Total Score: 1 03/22/20 23 10:29 AM CDT documented as of this encounter Care Teams Claims Agent Right Of Way Relationship Specialty [place] [address] [place] [address] Assigned PCP 05/02/16 Hailee Allen MD [address] [place] [address] [address] [place], [place] [id number] Pulmonary Disease 02/11/23 documented as of this encounter
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
--- OUTSIDE RECORDS SUMMARY | 2024-04-12 13:42 | XMS_ITS | Clinical Summary ---
Author Organization [facility] Address [address] [place] [address] Care Team Providers Care Development Spec Name Role Phone Unavailable Primary Care Provider Unavailabl e Source Comments You are receiving this document as you are listed as the primary care provider,follow-up provider, or the patient has been referred to you for consultation.This is in compliance with the Medicare andMedicaid EHR Incentive Program,which states Providers who transition their patient to another setting of careor provider of care or refers their patient to another provider of care shouldprovide summary care record for each transition of care or referral. [facility] Allergies Active Allergy Reactions Criticality Noted Date Comments Morphine And Codeine Other, see comments High 2013 Passed out. SOB Medications Medication Sig Dispensed Refills Start Date End Date Status amitriptyline (ELAVIL) 50 MG tablet Take 1 Tablet by mouth every evening. 06/01/2022 Active gabapentin (NEURONTIN) 300 MG capsule Take 300 mg by mouth At Bedtime. 06/30/2022 Active SENNA-TIME 8.6 MG tablet Take 2 Tablets by mouth every evening. 06/04/2022 Active Social History Tobacco Use Types Packs/Day Years Used Date Smoking Tobacco: Never Smokeless Tobacco: Never Tobacco Cessation:Counseling Given: Not Answered Sex and Gender Information Value Date Recorded Sex Assigned at Not on file Gender Identity Not on file Sexual Orientation Not on file Last Filed Vital Signs Vital Sign Reading Time Taken Comments Blood Pressure 133/74 07/06/2022 4:31 PM CDT Pulse 99 07/06/2022 4:31 PM CDT Temperature 37.6 ??C (99.6 ??F) 07/06/2022 4:31 PM CD T Respiratory Rate 16 07/06/2022 4:31 PM CDT Oxygen Saturation 97% 07/06/2022 4:31 PM CDT Inhaled Oxygen Concentration - - Weight - - Height - - Body Mass Index - - Plan of Treatment Health Maintenance Due Date Last Done Comments Hep C Screening (Preventive Services) 1945 Adult Preventive Visit 1962 Dexa 2009 Zoster/Shingles (2 of 3) 06/05/2012 04/10/2012 COVID-19 Vaccine ( season) 2023 09/15/2021, 12/16/2020, 11/25/2020 Influenza (Season Ended) 2024 021, 06/25/2020, 09/13/2018, Additional history exists DTaP/Tdap/Td (3 - Tdap) 02/15/2031 02/16/20 21, 07/28/2012, 04/28/2004 Pneumococcal 65+ Yrs Completed 02/03/2016, 04/10/2012, 07/10/2008 HepA Aged Out No longer eligi ble based on patient's age to complete this topic HepB Aged Out No longer eligi ble based on patient's age to complete this topic Hib Aged Out No longer eligi ble based on patient's age to complete this topic IPV (Polio) Aged Out No longer eligi ble based on patient's age to complete this topic MCV4 Aged Out No longer eligi ble based on patient's age to complete this topic
--- OUTSIDE RECORDS SUMMARY | 2024-04-12 13:42 | XMS_ITS | Clinical Summary ---
Author Organization [place] Address [address] [facility] [place] [address] Care Team Providers Care Event Specialist Food Demonstrator Name Role Phone Rosie Trejo MD Unavailable [phone] Hailee Allen MD Unavailable [phone] No Ref-Primary, Physician Primary Care Provider Joelle Camara MD Unavailable Allergies Active Allergy Reactions Criticality Noted Date [...] PT- helping; Spinal stenosis of lumbar re gion with neurogenic claudication 04/20/2016 Overview: gabapentin trail [...] updated by automated process. Provider to review Encounters Date Type Department Care Team Description 03/[facility] [facility] [address] [place] [phone] Rosie Trejo MD Medication Refill 03/05/[address] [facility] [address] [place] [phone] Rosie Trejo MD Medication Refill 02/23/2024 8:00 AM CDT Office Visit [facility] [address] [place] [phone] Kathy Lyn PA-C Memory difficulties (Primary Dx) 02/23/2024 Travel 01/25/2024 Telephone [place] Centralized Scheduling On license of [facility] [place] [address] Rm, Fv Cc Proc Appointment 01/25/2024 Telephone [facility] [address] [place] [address] Carlos Hamilton MD Memory Loss (Forgetfulness x 1 month) from Last 3 Months Immunizations Name Administration Dates Next Due COVID-19 12+ () (Pfizer) 07/26/2023 COVID-19 Bivalent 12+ (Pfizer) 09/21/2022 COVID-19 MONOVALENT 12+ (Pfizer) 09/15/2021,03/0 06/2021,11/25/2020 Influenza (High Dose) 3 miguel nt vaccine 09/13/2018,07/13/2017,08/17/2016,2014 Influenza (IIV3) PF 10/29/2013, 2,06/22/2011,2009,07/08/2009,07/10/2008,08/19/2007,1 10/22/2005 Influenza Vaccine 65+ (Fluzone HD) 07/26,09/21/2022,09/15/2021,2019 Pneumo Conj 13-V (2010&after) 02/03/2016 Pneumococcal 23 valent 04/10/2012,07/10/2008 TDAP (Adacel,Boostrix) 02/15/2021,07/28/2012 TDAP Vaccine (Adacel) 07/28/2012 Td (Adult), Adsorbed 04/28/2004 Zoster vaccine, live 04/10/2012 Family History Medical History Relation Comments Coronary Artery Disease Maternal Grandmother Coronary Artery Disease Mother Colon Cancer No family hx of Relation Status Comments Maternal Grandmother Mother Social History Tobacco Use Types Packs/Day Years [...] in an abandoned building, in an overnight fdc, or couch-surfing.) Yes 07/26/2023 Are you worried [...] CDT Office Visit [facility] [address] [facility] [address] [place] [phone] Kathy Lyn PA-C [address] [place] [address] Joelle Camara MD [address] [facility], [address] [address] Health Maintenance Due Date Last Done Comments RSV VACCINE ( & 60+) (1 - 1-dose 60+ series) 2004 ZOSTER IMMUNIZATION (2 of 3) 06/05/2012 04/10/2012 COVID-19 Vaccine (2022-24 season) 2023 07/26/2023, 09/21/2022, 09/15/2021, Additional history exists INFLUENZA VACCINE (#1) 2024 , 09/21/2022, 09/15/2021, Additional history exists ANNUAL REVIEW OF HM ORDERS 10/12/202410/12, 09/21/2022, 09/15/2021 FALL RISK ASSESSMENT 10/12/2024 10/12/2023, 09/21/2022, 09/15/2021, Additional history exists MEDICARE ANNUAL WELLNESS VISIT 10/12/2024 10/12/2023, 09/21/2022, 01/20/2017 HEPATITIS C SCREENING 02/08/2026 Postpo tarik from 1962 (Other) GLUCOSE 07/07/2026 07/07/2023, 06/11, 07/06/2023, Additional history exists LIPID 09/21/2027 09/21/2022, 1204/2021, 05/11/2016, Additional history exists ADVANCE CARE PLANNING 10/12/2028 10/12/2023 , 09/24/2021, 04/20/2016 DTAP/TDAP/TD IMMUNIZATION (4 - Td or Tdap) 02/15/2031 02/15/2021, 07/28/2012, 07/28/2012, Additional history exists FIT Discontinued 06/29/2015 Pneumococcal Vaccine: 65+ Years Completed 02/03/2016, 04/10/2012, 07/10/2008 COLONOSCOPY Discontinued 08/30/2016, 08/30/2016 COLORECTAL CANCER SCREENING Discontinued MAMMO SCREENING Discontinued 08/22/2017, 05/23/2015 DEXA Discontinued 10/23/2017, 10/23/2017 CT COLONOGRAPHY Discontinued FLEX SIG Discontinued HPV IMMUNIZATION Aged Out No longer e ligible based on patient's age to complete this topic IPV IMMUNIZATION Aged Out No longer e ligible based on patient's age to complete this topic MENINGITIS IMMUNIZATION Aged Out No l onger eligible based on patient's age to complete this topic RSV MONOCLONAL ANTIBODY Aged Out No l onger eligible based on patient's age to complete this topic URINE DRUG SCREEN Discontinued sDNA (Cologuard) Discontinued Medical Devices Implanted Type Area Excellence Specialist Device Identifier Shelf Expiration Date Model / Serial / Lot Percuflex Plus Ureteral Stent 4.8x24cm Implanted:Qty: 1 on 02/15/2018 at [facility] Left: Ureter 11/21/2020 [id number] / / [id number] Explanted Type Area Excellence Specialist Device Identifier Shelf Expiration Date Model / Serial / Lot Stent Ureteral Percuflex Plus [id number] Implanted:Qty: 1 on 02/01/2018 by Sandro Valle MD at [facility] Explanted:Qty: 1 on 02/15/2018 at [facility] Stent Left: Ureter [employer] 11/30/2020 [id number] / / [id number] Procedures Procedure Name Priority Date/Time Associated Diagnosis Comments GLUCOSE BY METER STAT 07/07/2023 4:03 AM CDT LIPID REFLEX TO DIRECT LDL PANEL Routine 09/21/2022 10:51 AM REHABILITATION CASEWORKER CARDIOVASCULAR SCREENING; LDL GOAL LESS THAN 130 DEXA - HIM SCAN 10/23/2017 12:00 AM REHABILITATION CASEWORKER MA SCREENING BILATERAL W/ BROOKS Routine 08/22/2017 7:50 AM REHABILITATION CASEWORKER Visit for screening mammogram COLONOSCOPY Routine 08/30/2016 3:33 PM REHABILITATION CASEWORKER from Last 3 Months or Most Recently Relevant to Health Maintenance Results * (ABNORMAL) Glucose by meter (07/07/2023 4:03 AM CDT) GLUCOSE BY METER POCT 120(H) 70 - 99 mg/dL 07/07/2023 4:10 AM CDT [facility] P[facility] Blood, Capillary BLOOD SPECIMEN / Unknown 07/07/2023 4:03 AM CDT 07/07/2023 4:10 AM CDT Carlso Gross MD LAB - [facility] POCT [facility] POC [facility] [address] Lab (1st floor, no room number) [place] [address], [facility] [phone] * (ABNORMAL) Lipid panel reflex to direct LDL Fasting (09/21/2022 10:51 AM REHABILITATION CASEWORKER) Cholesterol 208(H) <200 mg/dL 09/21/2022 8:06 PM REHABILITATION CASEWORKER [facility] Triglycerides 98 <150 mg/dL 09/21/2022 8:06 PM REHABILITATION CASEWORKER [facility] Direct Measure HDL 51 >=50 mg/dL 09/21/2022 8:06 PM REHABILITATION CASEWORKER [facility] LDL Cholesterol Calculated 137(H) <=100 mg/dL 09/21/2022 8:06 PM REHABILITATION CASEWORKER [facility] Non HDL Cholesterol 157(H) <130 mg/dL 09/21/2022 8:06 PM REHABILITATION CASEWORKER [facility] Blood STRUCTURE OF LEFT UPPER LIMB / Unknown Venipuncture / Unknown 09/21/2022 10:51 AM REHABILITATION CASEWORKER 09/21/2022 10:51 AM REHABILITATION CASEWORKER Narrative [facility] - 09/21/2022 8:06 PM REHABILITATION CASEWORKER Cholesterol Desirable: ??<200 mg/dL Triglycerides Normal: ??Less [...] LAB - BLOOD ORDER ISIAH [facility] [employer] [place] [facility] [address] [facility], [address] [place] [id number], [facility] [phone] * DEXA - HIM SCAN (10/23/2017 12:00 AM REHABILITATION CASEWORKER) Anatomical Region Laterality Modality Other 10/23/2017 Provider Outside IMG DEXA ORDERABLES * MA Screen Bilateral w/Brooks (08/22/2017 7:50 AM REHABILITATION CASEWORKER) Anatomical Region Laterality Modality Breast Bilateral Mammography Impressions 08/22/2017 10:54 AM REHABILITATION CASEWORKER IMPRESSION: BI-RADS CATEGORY: 1 - ??Negative RECOMMENDED FOLLOW-UP: Annual Mammography. Exam results letter mailed to patient. TUAN EVANS MD Narrative 08/22/2017 10:54 AM REHABILITATION CASEWORKER SCREENING MAMMOGRAM, BILATERAL, DIGITAL w/CAD AND TOMOSYNTHESIS [...] O RDERABLES * COLONOSCOPY (08/30/2016 3:33 PM REHABILITATION CASEWORKER) COLONOSCOPY [facility] Patient Name: Odalys Chun ? Procedure Date: 08/30/2016 3:33 PM ? Date of : 1945 ? Admit Type: Outpatient Age: 71 ? Gender: Female Attending MD: Nick Dudley MD ?Instrument Name: 136 Procedure: ?Colonoscopy Indications: ?Screening for colorectal malignant neoplasm Providers: ?Nick Dudley MD (Doctor), Lady Young RN ?(Nurse) Referring MD: ? Rosie Trejo [...] and ?oxygen saturations were monitored continuously. The ?[employer] Colonoscope Model #PCF-H190L, ?[place]#136, SN#[id number] was introduced through the ?anus and advanced [...] malignant neoplasm of colon CPT copyright 2013 [employer]. All rights reserved. The codes documented in this report are preliminary and upon restrike hammer operator review may be revised to meet current compliance requirements. Electronically signed by Nick Dudley MD __ Nick Dudley MD 08/30/2016 3:55 PM I was physically present for the entire viewing portion of the exam. Number of Addenda: 0 Note Initiated On: 08/30/2016 3:33 PM MRN: ?[id number] Procedure Date: ? 08/30/2016 3:33:34 PM Scope Withdrawal Time: 0 hours 6 minutes 15 seconds Total Procedure Duration: 0 hours 10 minutes 50 seconds Estimated Blood Loss: ? Scope In: 3:40:17 PM Scope Out: 3:51:07 PM RADIOLOGY RESULTS 08/30/2016 3:33 PM REHABILITATION CASEWORKER Rosie Trejo MD PROCEDURES Performing Organization Address City/State/[facility] Co de Phone Number RADIOLOGY RESULTS from Last 3 Months or Most Recently Relevant to Health Maintenance Advance Directives For more information, please contact: [phone] * Full Code (Latest Code Status on File) Date Activated Date Inactivated Comments 07/06/2023 11:05 PM 07/07/2023 12:32 PM All basic and advanced life-sustaining interventions are performed as appropriate Question Answer Comments Code status determined by: Discussion with patie nt/ legal decision maker Care Teams Event Specialist Food Demonstrator Relationship Specialty Start Date End Date No Ref-Primary, Physician PCP - General 02/23/24 [place] [address] [address] [address] Assigned PCP 05/02/16 Hailee Allen MD [address] [place] [address] [address] [place], [place] [address] Pulmonary Disease 02/11/23 Joelle Camara MD [address] [facility] [address] [address] Physician Neurology 02/28/24
--- OUTSIDE RECORDS SUMMARY | 2024-04-12 13:42 | XMS_ITS | Encounter Summary ---
Author Organization [place] Address [address] [facility] [place] [address] Care Team Providers Care Crop Or Grain Farmer Name Role Phone Rosie Trejo MD Unavailable [phone] Hailee Allen MD Unavailable [phone] Reason for Visit * Reason Onset Date Comments Appointment 01/25/2024 Encounter Details Date Type Department Care Team (Late st Contact Info) Description 01/25/2024 Telephone [place] Centralized Scheduling [address] [place] [address] Silvia Morin C[facility] Proc [place], [place] Appointment Social History Tobacco Use Types Packs/Day Years [...] Answer Date Recorded Do you have housing? (Patoin g is defined as stable permanent housing and does not include staying ouside in a car, in a tent, in an abandoned building, in an overnight alf, or couch-surfing.) Yes 07/26/2023 Are you worried [...] encounter Miscellaneous Notes * Telephone Encounter - Harriett Cummings RN - 01/25/2024 1:56 PM CDT Called the pt. Her dtr is seeing more of these things. She thinks she forgets things and does not remember everything. Her dtr is the one who sees the problem. She said her dtr has no right to talk to her like that. Appt scheduled. She will talk to her dtr and let us know if that does not work. * Telephone Encounter - Jacki Meyer - 01/25/2024 12:52 PM CDT Reason for Call: Appointment Request Patient requesting this type of appt: OV for memory issues Requested provider: any provider, prefers female, pcp is retired Reason patient unable to be scheduled: Not within requested timeframe When does patient want to be seen/preferred time: 1-2 weeks Comments: patient would like daughter to help schedule an appointment due to memory issues. Okay to leave a detailed message?: Yes at Cell number on file: Telephone Information: Call taken on 01/25/2024 at 12:52 PM by Jacki Meyer documented in this encounter Plan of Treatment Upcoming Encounters Date Type Department Care Team (Late st Contact Info) Description 07/06/2024 9:00 AM CDT Office Visit [facility] [address] [place] [address] Kathy Lyn PA-C [address] [place], [place] [phone] Joelle Camara MD [address] [place], [place] [id number] documented as of this encounter Visit Diagnoses Not on filedocumented in this encounter Additional Health Concerns Assessment Noted Time PHQ-9 Depression Total Score: 1 03/22/20 23 10:29 AM CDT documented as of this encounter Care Teams Crop Or Grain Farmer Relationship Specialty [place] [address] [facility] [place] [address] Assigned PCP 05/02/16 Hailee Allen MD [address] [place] [address] [address] [place], [place] [phone] Pulmonary Disease 02/11/23 documented as of this encounter
[2024-04-12 13:46] LABS: Basophils Percent Auto 0.2 % (0.0-3.0); Eosinophils Percent Auto 0.1 % (0.0-7.0); Hematocrit 55.4 % (33.0-51.0); Hemoglobin* 18.7 gm/dL (12.0-16.0); Immature Granulocytes Pct Auto 0.2 %; Lymphocytes Percent Auto 8.9 % (20-44); Mean Corpuscular HGB Conc 34 gm/dL (32-36); Mean Corpuscular Hemoglobin 30 pg (26-34); Mean Corpuscular Volume 88 fL (80-100); Monocytes Percent Auto 9.1 % (0.0-11.0); Neutrophils Percent Auto 81.5 % (42.0-72.0); Platelet Count* 206 K/uL (140-440); RDW Coefficient of Variation % 13.3 % (11.5-15.5); Red Blood Count 6.27 m/uL (4.00-5.20); White Blood Count* 16.47 K/uL (4.50-11.00)
[2024-04-12 13:47] LABS: Troponin, Point-of-Care* 0.01 ng/ml (0.01-0.04)
[2024-04-12 13:59] LABS: Chloride* 104 mmol/L (96-114); Potassium* 4.1 mmol/L (3.6-5.1); Sodium* 139 mmol/L (135-149)
[2024-04-12 14:02] LABS: Anion Gap 16 mEq/L (7-15); Blood Urea Nitrogen* 36 mg/dL (7-30); Carbon Dioxide* 19 mmol/L (20-32); Creatinine* 0.9 mg/dL (0.5-1.5); Estimated Glomerular Filt Rate 65 ml/min; Slide Review Reflex No
[2024-04-12 14:03] LABS: Calcium* 10.4 mg/dL (8.4-10.6); Glucose* 117 mg/dL (60-115)
[2024-04-12 14:05] LABS: C Reactive Protein* 4.4 mg/dL (0.5-1.0)
--- NOTE | 2024-04-12 14:12 | CRLHL7_ITS ---
For Patients: As a result of the Cures Act, medical imaging exams and procedure reports are released immediately into your electronic medical record. You may view this report before your referring provider. If you have questions, please contact your health care provider. Indication: Tachycardia, fever. Technique: Chest 2 views. Comparison: None. Findings: The cardiomediastinal silhouette size is normal. There is a 1.9 cm nodular opacity in the mid left lung near the hilum. No other abnormal opacities. No pleural effusion or pneumothorax. Moderate elevation of the anterior right hemidiaphragm. Degenerative changes in the spine. Impression: There is a 1.8 cm nodular opacity in the left lung. Recommend chest CT for further evaluation. Dictated by Jocelyn Bernabe MD @ 04/12/2024 3:28:06 PM (Electronically Signed)
[2024-04-12] MEDS: 0.9 % SODIUM CHLORIDE 1000 ml 1,000 ML IV ×2 (14:30→15:37)
--- NOTE | 2024-04-12 14:30 | CRLHL7_ITS ---
For Patients: As a result of the Century Cures Act, medical imaging exams and procedure reports are released immediately into your electronic medical record. You may view this report before your referring provider. If you have questions, please contact your health care provider. Indication: Abdominal pain and fever Technique: Volumetric multidetector CT images of the abdomen and pelvis were obtained after the administration of intravenous contrast. 76 cc Isovue 370 low osmolar intravenous contrast Comparison: None available. Findings: The lung bases are clear. The liver is normal in attenuation without intrahepatic biliary ductal dilatation. The portal vein is patent. The gallbladder is unremarkable without evidence of radiopaque calculus. There is no significant common biliary ductal dilatation or abrupt cut off. The spleen is normal in enhancement and size. The stomach and duodenum are grossly unremarkable. The pancreas is normal in enhancement without significant atrophy. The adrenal glands are unremarkable. Nonobstructive calculi are seen within the collecting systems with preserved corticomedullary differentiation of the bilateral kidneys. Moderate stool is seen throughout the colon with minimal distal colonic diverticulosis without definite evidence of diverticulitis. The appendix is not visualized. There is no significant mesenteric, retroperitoneal, or pelvic sidewall lymph nodes. The aorta is nonaneurysmal. There is no significant atherosclerotic disease appreciated. The solid pelvic viscera are grossly unremarkable. There is no free fluid or free air. The anterior abdominal wall is intact without significant hernias. The lumbar vertebral body heights are grossly maintained with endplate Schmorl`s defects. There is minimal anterolisthesis of L4 on L5. There is [id number] degenerative disc height loss and marginal osteophyte formation. Impression: Moderate stool seen throughout the colon with minimal distal colonic diverticulosis. No evidence of diverticulitis. No obvious acute intra-abdominal abnormality. Please note that all CT scans at this facility use dose modulation, iterative reconstruction, and/or weight-based dosing when appropriate to reduce radiation dose to as low as reasonably achievable. Dictated by Jesse Devine MD @ 04/12/2024 4:25:29 PM (Electronically Signed)
[2024-04-12 15:01] LABS: PCR FLU A Negative PCR FLU A (Negative); PCR FLU B Negative PCR FLU B (Negative); PCR RSV Negative PCR RSV (Negative); SARS PCR* Negative SARS-CoV-2 (Negative)
[2024-04-12 16:47] LABS: Lactate* 0.9 mmol/L (0.5-1.9)
== END 2024-04-12 17:25 | disposition home or self-care (01) ==
PROVIDERS: Emergency Provider Emergency Medicine Emergency Medical Services
DX: E86.1 Hypovolemia (principal)
CPT/HCPCS: 36415; 71046; 74177; 80048; 81001; 83605; 84484; 85025; 86140; 87040; 87631; 93005; 96360; 96361; 99284; 99285; J7030; Q9967